=== PATIENT | female | born 1950 | race Caucasian/White ===

== ENCOUNTER → 2019-01-10 | Outpatient (CLI) | payer OTHER | LOC: HYPER 01-03 08:31 | DX: T81.31XA Disruption of external operation (surgical) wound, not elsewhere classified, initial encounter (principal); I10 Essential (primary) hypertension; G47.30 Sleep apnea, unspecified; L84 Corns and callosities; G40.909 Epilepsy, unspecified, not intractable, without status epilepticus; E66.9 Obesity, unspecified; J45.998 Other asthma; Z79.4 Long term (current) use of insulin; Z79.84 Long term (current) use of oral hypoglycemic drugs; Z79.01 Long term (current) use of anticoagulants; Z68.42 Body mass index [BMI] 45.0-49.9, adult; Y92.89 Other specified places as the place of occurrence of the external cause; Y83.8 Other surgical procedures as the cause of abnormal reaction of the patient, or of later complication, without mention of misadventure at the time of the procedure ==

== ENCOUNTER → 2019-03-14 | Outpatient (CLI) | payer OTHER | LOC: HYPER 02-28 06:49 | DX: T81.31XD Disruption of external operation (surgical) wound, not elsewhere classified, subsequent encounter (principal); E11.9 Type 2 diabetes mellitus without complications; E66.9 Obesity, unspecified; G47.30 Sleep apnea, unspecified; G40.909 Epilepsy, unspecified, not intractable, without status epilepticus; I10 Essential (primary) hypertension; J45.998 Other asthma; Z68.42 Body mass index [BMI] 45.0-49.9, adult; Z79.4 Long term (current) use of insulin; Z79.84 Long term (current) use of oral hypoglycemic drugs; Z79.01 Long term (current) use of anticoagulants; Y83.8 Other surgical procedures as the cause of abnormal reaction of the patient, or of later complication, without mention of misadventure at the time of the procedure ==

== ENCOUNTER 2019-07-06 15:39 | Emergency (ER) | payer OTHER ==
[~2019-07-06] VITALS: Ht 160 cm; Wt 136.1 kg
[2019-07-06 17:16] LABS: HEMATOCRIT 35.3 % (37.0-47.0); HEMOGLOBIN 11.6 gm/dL (12.0-15.0); MCH 30.9 pg (26.0-34.0); MCHC 32.7 g/dL (28.0-37.0); MCV 94.3 fL (80.0-100.0); PLATELET COUNT 251 thou/uL (150-400); RBC 3.74 mil/uL (4.20-5.00); RDW 15.4 % (10.5-14.5); WBC 8.7 thou/uL (4.0-11.0)
[2019-07-06 17:28] LABS: CALCIUM 10.3 mg/dL (8.5-10.1); CREATININE 1.2 mg/dL (0.6-1.0); POTASSIUM 3.9 mmol/L (3.5-5.1)
[2019-07-06] MEDS ORDERED: NORVASC5 M1 PO (17:35)
[2019-07-06] MEDS ORDERED: ASA81BEC PO (17:35)
[2019-07-06 17:36] LABS: ALBUMIN 3.1 g/dL (3.4-5.0); MAGNESIUM 2.1 mg/dL (1.8-2.4); TOTAL BILIRUBIN 0.3 mg/dL (<0.1-1.0)
[2019-07-06] MEDS ORDERED: FUROSEMIDE 40 M40 MG PO (17:36)
[2019-07-06] MEDS ORDERED: COZAAR 50 MG TA50 MG PO (17:36)
[2019-07-06] MEDS ORDERED: CARVEDILOL25 MG PO (17:37)
[2019-07-06] MEDS ORDERED: DULCOLAX STOOL100 M1 PO (17:37)
[2019-07-06] MEDS ORDERED: HYDRALAZINE HC100 MG PO (17:38)
[2019-07-06] MEDS ORDERED: SINGULAIR 10 MG10 MG PO (17:38)
[2019-07-06] MEDS ORDERED: CLONIDINE HCL0.2 M2 PO (17:39)
[2019-07-06] MEDS ORDERED: XARELTO20 MG PO (17:39)
[2019-07-06] MEDS ORDERED: DITROPAN XL10 M1 PO (17:39)
[2019-07-06] MEDS ORDERED: ALLER-EASE180 MG PO (17:40)
[2019-07-06] MEDS ORDERED: FLONASE 0.05%50 MCG NARES (17:40)
[2019-07-06] MEDS ORDERED: PAIN RELIEVER500 MG PO (17:41)
[2019-07-06] MEDS ORDERED: VIMPAT200 MG PO (17:41)
[2019-07-06] MEDS ORDERED: LANTUS SUBQ (17:42)
[2019-07-06] MEDS ORDERED: HUMALOG100 UNIT/1 SUBQ (17:42)
[2019-07-06] MEDS ORDERED: MIRALAX119 GM PO (17:43)
[2019-07-06] MEDS ORDERED: VENTOLIN HFA 1818 GM INH (17:43)
[2019-07-06 17:44] LABS: ABSOLUTE NEUTROPHILS 4.9 thou/uL (1.4-8.2)
[2019-07-06 17:45] LABS: TARGET CELLS OCCASIONAL
[2019-07-06 17:47] LABS: ANISOCYTOSIS SLIGHT; BURR CELLS OCCASIONAL; PLATELET ESTIMATE NORMAL
[2019-07-06 18:25] LABS: URINE BILIRUBIN NEGATIVE (Negative); URINE BLOOD NEGATIVE (Negative); URINE CLARITY CLEAR; URINE COLOR YELLOW; URINE GLUCOSE-RANDOM* NEGATIVE (Negative); URINE KETONES NEGATIVE (Negative); URINE LEUKOCYTES-REFLEX NEGATIVE (Negative); URINE NITRITE-REFLEX NEGATIVE (Negative); URINE PROTEIN (DIPSTICK) NEGATIVE (Negative); URINE UROBILINOGEN 0.2 E.U./dl (0.2-1.0)
[2019-07-06 18:32] LABS: AMP/METHAMP Negative (Negative); BARBITURATES Negative (Negative); BENZODIAZEPINES Negative (Negative); COCAINE Negative (Negative); METHADONE Negative (Negative); OPIATES Negative (Negative); PCP Negative (Negative)
[2019-07-06 18:43] VITALS: BP 171/65
--- NOTE | 2019-07-10 12:58 | EKG ---
[place] [address] [facility] [place] [address] ELECTROCARDIOGRAM REPORT Name: EDUAR CARTERNDA Room #: [facility] TAMMY Mary#: [id number] Admission: 07/06/19 Attend Phys: Discharge: 07/06/19 Date of : 48 Report #: [id number] THIS REPORT FOR: //name// [facility] ED Test Date: 2019-07-06 Test Time: 15:47:28 Pat Name: NEMESIO CARTER Department: Room: Gender: F [employer]: DESMOND : 1950 Requested By: Bruno Bradshaw Order Number: [id number] MD: Kang Bender Measurements Intervals [place] Rate: 69 P: 57 HI: 178 QRS: -15 QRSD: 85 T: 25 QT: 397 QTc: 426 Interpretive Statements Sinus rhythm Borderline left axis deviation Low voltage, precordial leads Abnormal R-wave progression, late transition No previous ECG available for comparison Electronically Signed On 07-10-2019 12:57:42 RN EXAMINER by Kang Bender [email or web address] <ELECTRONICALLY SIGNED> By: Kang Bender MD 07/10/19 1257 [id number] Kang Bender MD /FIFI
== END 2019-07-06 18:53 | disposition home or self-care (01) ==
LOC: ER 15:39
PROVIDERS: Emergency Medicine
DX: S31.109A Unspecified open wound of abdominal wall, unspecified quadrant without penetration into peritoneal cavity, initial encounter (principal); G40.909 Epilepsy, unspecified, not intractable, without status epilepticus; J06.9 Acute upper respiratory infection, unspecified; R53.1 Weakness; I10 Essential (primary) hypertension; G47.30 Sleep apnea, unspecified; Z88.6 Allergy status to analgesic agent; Z88.8 Allergy status to other drugs, medicaments and biological substances; X58.XXXA Exposure to other specified factors, initial encounter; Y93.89 Activity, other specified; Y92.89 Other specified places as the place of occurrence of the external cause; Y99.8 Other external cause status

== ENCOUNTER → 2019-07-25 | Outpatient (CLI) | payer OTHER ==
[~2019-07-25] MED LIST: ALLER-EASE180 MG PO; ASA81BEC PO; CARVEDILOL25 MG PO; CLONIDINE HCL0.2 M2 PO; COZAAR 50 MG TA50 MG PO; DITROPAN XL10 M1 PO; DULCOLAX STOOL100 M1 PO; FLONASE 0.05%50 MCG NARES; FUROSEMIDE 40 M40 MG PO; HUMALOG100 UNIT/1 SUBQ; HYDRALAZINE HC100 MG PO; LANTUS SUBQ; MIRALAX119 GM PO; NORVASC5 M1 PO; PAIN RELIEVER500 MG PO; SINGULAIR 10 MG10 MG PO; VENTOLIN HFA 1818 GM INH; VIMPAT200 MG PO; XARELTO20 MG PO
== END ==
LOC: HYPER 08:46
DX: T83.718D Erosion of other implanted mesh to organ or tissue, subsequent encounter (principal); S31.109D Unspecified open wound of abdominal wall, unspecified quadrant without penetration into peritoneal cavity, subsequent encounter; L84 Corns and callosities; E11.69 Type 2 diabetes mellitus with other specified complication; J45.998 Other asthma; G40.909 Epilepsy, unspecified, not intractable, without status epilepticus; E66.09 Other obesity due to excess calories; G47.30 Sleep apnea, unspecified; Z68.43 Body mass index [BMI] 50.0-59.9, adult; Z79.01 Long term (current) use of anticoagulants; Z79.4 Long term (current) use of insulin; Z79.82 Long term (current) use of aspirin; Y83.8 Other surgical procedures as the cause of abnormal reaction of the patient, or of later complication, without mention of misadventure at the time of the procedure; X58.XXXD Exposure to other specified factors, subsequent encounter

== ENCOUNTER → 2020-01-15 | Outpatient (CLI) | payer OTHER | LOC: HYPER 14:45 | PROVIDERS: ATTEND Emergency Medicine | DX: T83.718D Erosion of other implanted mesh to organ or tissue, subsequent encounter (principal); S31.109D Unspecified open wound of abdominal wall, unspecified quadrant without penetration into peritoneal cavity, subsequent encounter; E11.69 Type 2 diabetes mellitus with other specified complication; L84 Corns and callosities; I10 Essential (primary) hypertension; E66.9 Obesity, unspecified; J45.909 Unspecified asthma, uncomplicated; G40.909 Epilepsy, unspecified, not intractable, without status epilepticus; G47.30 Sleep apnea, unspecified; Z79.4 Long term (current) use of insulin; Z79.01 Long term (current) use of anticoagulants; Z68.43 Body mass index [BMI] 50.0-59.9, adult; Z90.49 Acquired absence of other specified parts of digestive tract; Z90.89 Acquired absence of other organs; Z90.81 Acquired absence of spleen; Y83.1 Surgical operation with implant of artificial internal device as the cause of abnormal reaction of the patient, or of later complication, without mention of misadventure at the time of the procedure ==

== ENCOUNTER → 2020-07-22 | Outpatient (CLI) | payer OTHER | LOC: HYPER 13:33 | PROVIDERS: ATTEND Emergency Medicine | DX: T83.718D Erosion of other implanted mesh to organ or tissue, subsequent encounter (principal); S31.109D Unspecified open wound of abdominal wall, unspecified quadrant without penetration into peritoneal cavity, subsequent encounter; E11.69 Type 2 diabetes mellitus with other specified complication; L84 Corns and callosities; I10 Essential (primary) hypertension; J45.998 Other asthma; E66.09 Other obesity due to excess calories; G47.30 Sleep apnea, unspecified; G40.909 Epilepsy, unspecified, not intractable, without status epilepticus; Z79.4 Long term (current) use of insulin; Z79.01 Long term (current) use of anticoagulants; Z68.43 Body mass index [BMI] 50.0-59.9, adult; Z90.49 Acquired absence of other specified parts of digestive tract; Z90.89 Acquired absence of other organs; Z90.81 Acquired absence of spleen; X58.XXXD Exposure to other specified factors, subsequent encounter; Y83.1 Surgical operation with implant of artificial internal device as the cause of abnormal reaction of the patient, or of later complication, without mention of misadventure at the time of the procedure ==

== ENCOUNTER → 2020-09-16 | Outpatient (CLI) | payer OTHER | LOC: HYPER 13:51 | PROVIDERS: ATTEND Emergency Medicine | DX: T83.718D Erosion of other implanted mesh to organ or tissue, subsequent encounter (principal); E11.622 Type 2 diabetes mellitus with other skin ulcer; L98.492 Non-pressure chronic ulcer of skin of other sites with fat layer exposed; L84 Corns and callosities; E66.01 Morbid (severe) obesity due to excess calories; I10 Essential (primary) hypertension; J45.998 Other asthma; G47.30 Sleep apnea, unspecified; G40.909 Epilepsy, unspecified, not intractable, without status epilepticus; Z79.4 Long term (current) use of insulin; Z79.01 Long term (current) use of anticoagulants; Z68.43 Body mass index [BMI] 50.0-59.9, adult; Z90.81 Acquired absence of spleen; X58.XXXD Exposure to other specified factors, subsequent encounter; Y83.1 Surgical operation with implant of artificial internal device as the cause of abnormal reaction of the patient, or of later complication, without mention of misadventure at the time of the procedure ==

== ENCOUNTER → 2021-01-27 | Outpatient (CLI) | payer OTHER | LOC: HYPER 08:32 | PROVIDERS: ATTEND Emergency Medicine | DX: T81.31XD Disruption of external operation (surgical) wound, not elsewhere classified, subsequent encounter (principal); T83.718D Erosion of other implanted mesh to organ or tissue, subsequent encounter; L98.492 Non-pressure chronic ulcer of skin of other sites with fat layer exposed; E11.69 Type 2 diabetes mellitus with other specified complication; I10 Essential (primary) hypertension; G47.30 Sleep apnea, unspecified; J45.909 Unspecified asthma, uncomplicated; G40.909 Epilepsy, unspecified, not intractable, without status epilepticus; E66.9 Obesity, unspecified; Z68.43 Body mass index [BMI] 50.0-59.9, adult; Z79.82 Long term (current) use of aspirin; Z79.01 Long term (current) use of anticoagulants; Z79.899 Other long term (current) drug therapy; Y83.2 Surgical operation with anastomosis, bypass or graft as the cause of abnormal reaction of the patient, or of later complication, without mention of misadventure at the time of the procedure; Y83.8 Other surgical procedures as the cause of abnormal reaction of the patient, or of later complication, without mention of misadventure at the time of the procedure ==

== ENCOUNTER → 2021-03-31 | Outpatient (CLI) | payer OTHER | LOC: HYPER 08:23 | PROVIDERS: ATTEND Emergency Medicine | DX: T81.31XD Disruption of external operation (surgical) wound, not elsewhere classified, subsequent encounter (principal); T83.718D Erosion of other implanted mesh to organ or tissue, subsequent encounter; E11.622 Type 2 diabetes mellitus with other skin ulcer; L98.492 Non-pressure chronic ulcer of skin of other sites with fat layer exposed; E11.69 Type 2 diabetes mellitus with other specified complication; L84 Corns and callosities; E66.09 Other obesity due to excess calories; G47.30 Sleep apnea, unspecified; J45.998 Other asthma; G40.909 Epilepsy, unspecified, not intractable, without status epilepticus; Z79.4 Long term (current) use of insulin; Z79.01 Long term (current) use of anticoagulants; Z98.890 Other specified postprocedural states; Z79.82 Long term (current) use of aspirin; Z79.899 Other long term (current) drug therapy; Z90.81 Acquired absence of spleen; Y83.8 Other surgical procedures as the cause of abnormal reaction of the patient, or of later complication, without mention of misadventure at the time of the procedure ==